=== PATIENT | female | born 1975 | race Caucasian/White ===

== ENCOUNTER 2022-10-02 13:16 | Outpatient (OUT) | payer BC, SELFPAY ==
--- NOTE | 2022-10-02 | MM_ITS ---
Patient: ALYSSA ALVA Exam Date: 10/02/2022 : 1975 Gender:F Ordering : DR Luis Majano . Admission #: [id number] Family : Order #: [id number] CLICK HERE TO VIEW EXAM RADIOLOGY REPORT PROCEDURE: MM TOMOSYNTHESIS SCREENING BI COMPARISON: MG MAMM SCREEN 3D AMINA CAD, 08/14/2020. MG MAMM SCREEN AMINA W CAD, 06/30/2019. INDICATIONS: Screening Calculator Name NCI Breast Cancer Risk Assessment Tool 5 Year Breast Cancer Risk 1.20% Lifetime Breast Cancer Risk 9.90% Personal Breast Cancer No Personal Ovarian Cancer No Treatments None Family Cancers None LOCATION: [facility] BREAST COMPOSITION: Scattered areas fibroglandular density. FINDINGS: DIAGNOSTIC CATEGORY 2--BENIGN FINDING. NO CHANGE FROM COMPARISON. Scattered benign-appearing nodules are present. Scattered benign-appearing calcifications are present. Scattered benign-appearing lymph nodes are present. RIGHT BREAST: No significant suspicious finding. Stable micro clip marker upper outer quadrant, posterior breast. LEFT BREAST: No significant suspicious finding. RECOMMENDATIONS: ROUTINE MAMMOGRAM AND CLINICAL EVALUATION IN 12 MONTHS. PLEASE NOTE: A NORMAL MAMMOGRAM DOES NOT EXCLUDE THE POSSIBILITY OF BREAST CANCER. A CLINICALLY SUSPICIOUS PALPABLE LUMP SHOULD BE BIOPSIED. Dictated by: Milton Camejo MD on 10/02/2022 at 15:43 Approved by: Milton Camejo MD on 10/02/2022 at 15:59
== END 2022-10-02 13:17 ==
LOC: MAMMO 13:19
PROVIDERS: PCP Family Medicine; Visit Provider Family Medicine
DX: Z12.31 Encounter for screening mammogram for malignant neoplasm of breast (principal)
CPT/HCPCS: 77063; 77067

== ENCOUNTER 2022-10-07 07:12 | Day surgery (SDC) | payer BC, SELFPAY ==
[2022-10-07 07:33] LABS: HCG Qualitative NEGATIVE (NEGATIVE)
[2022-10-07 07:40] VITALS: BP 145/73; PULSE 76; RESP 16; TEMP 36.2; O2SAT 97; BMI 48.2
[2022-10-07] MEDS: LACTATED RINGER'S SOLUTION 1,000 ML 50 ML IV (08:20)
[2022-10-07 08:46] VITALS: BP 132/75; PULSE 72; RESP 14; O2SAT 97
[2022-10-07 09:05] VITALS: BP 124/73; PULSE 63; RESP 16; O2SAT 97
--- NOTE | 2022-10-07 09:08 | PC.NURSE ---
Up to bathroom; gait steady; no complaints
--- NOTE | 2022-10-07 09:37 | PM.GSPRC ---
Date of procedure: 10/07/22 Indications for Procedure: This patient is a 47-year-old [place] who presents for screening colonoscopy. the risks benefits options and potential complications of the procedure were discussed in detail with the patient and they agreed to proceed and consent was signed. Pre-op diagnosis: colon cancer screening Post-op diagnosis: other (diverticulosis) Procedure: colonoscopy Anesthesia: MAC Surgeon: Ronn Rodriguez Procedure Summary: The patient was brought to the endoscopy suite and placed in the left lateral decubitus position.? Under MAC the fiberoptic colonoscope was introduced into the rectum. This was gradually advanced through the colon to the cecum. The cecal landmarks were identified. The bowel prep was good. Gradual withdrawal of the colonoscope was then undertaken. No vascular polypoid or mucosal lesions were noted throughout the entire length of the colon. In the descending colon there were scattered diverticuli. The anal rectal canal was unremarkable. The colon was decompressed. Digital rectal exam was unremarkable. The procedure was ended and the patient was transferred to the recovery area in stable condition. Recommended follow-up colonoscopy in ten years. Estimated blood loss (mL): 0 Specimens: none Complications: No
== END 2022-10-07 09:25 | disposition home or self-care (01) ==
PROVIDERS: PCP Family Medicine; Visit Provider Surgery
PROC: (CPT 45378; principal; 2022-10-07 08:30)
DX: Z12.11 Encounter for screening for malignant neoplasm of colon (principal); K57.30 Diverticulosis of large intestine without perforation or abscess without bleeding
CPT/HCPCS: 45378; 84703; J2704

== ENCOUNTER 2023-03-25 07:52 | Outpatient (OUT) | payer BC, SELFPAY ==
--- NOTE | 2023-03-25 07:56 | US_ITS ---
The [address] [address] Patient Name: ALYSSA ALVA MRN: [id number] date: 1975 Sex: F Assigned Patient Location: US Current Patient Location: US Accession/Order Number: [id number] Exam Date: 03/25/2023 08:10 Report Date: 03/25/2023 09:11 At the request of: JANE SAUER Procedure: US renal BI EXAM: US renal BI HISTORY: Recurrent UTI N39.0, Family History Kidney Stone Z84.1 COMPARISON: Renal ultrasound 04/28/2022. TECHNIQUE: Real-time ultrasound imaging of the kidneys and bladder. Findings: The kidneys measure 10.2 and 11.5 cm. There is good corticomedullary differentiation bilaterally. No renal stones. Mild left-sided pelviectasis. No focal mass or perinephric fluid collection. The bladder is fluid-filled with a prevoid volume of 246 mL. Unremarkable bladder. US/US renal BI IMPRESSION: 1. Mild left pelviectasis. Findings may relate to obstruction or reflux. Electronically authenticated by: JACY ANSARI Date: 03/25/2023 09:11
--- NOTE | 2023-03-25 08:08 | XR_ITS ---
The [address] [address] Patient Name: ALYSSA ALVA MRN: [id number] date: 1975 Sex: F Assigned Patient Location: US Current Patient Location: US Accession/Order Number: [id number] Exam Date: 03/25/2023 08:04 Report Date: 03/25/2023 14:15 At the request of: JANE SAUER Procedure: XR abdomen 1V EXAM: XR abdomen 1V HISTORY: Recurrent UTI N39.0, Family History Kidney Stone Z84.1 COMPARISON: None. TECHNIQUE: AP view of the abdomen. FINDINGS: Nonobstructive bowel gas pattern is noted. There is no suspicious calcification. The osseous structures are intact. XR/XR abdomen 1V IMPRESSION: Nonobstructive bowel gas pattern. Constipation. Electronically authenticated by: SHYAM OLIVERA Date: 03/25/2023 14:15
== END 2023-03-25 07:53 | disposition home or self-care (01) ==
LOC: US 07:52
PROVIDERS: PCP Family Medicine; Visit Provider Physician Assistant
DX: N39.0 Urinary tract infection, site not specified (principal); Z84.1 Family history of disorders of kidney and ureter; Z87.891 Personal history of nicotine dependence
CPT/HCPCS: 74018; 76775

== ENCOUNTER 2023-05-18 07:50 | Outpatient (OUT) | payer BC, SELFPAY ==
--- OUTSIDE RECORDS SUMMARY | 2023-05-18 07:52 | XMS_ITS | CCD ---
Author Name Unknown Address [address] [place] [address] Organization [facility] Care Team Providers Care Engineering Drawings Checker Name Role Phone HE OLIVAS Primary Care Physician DEISY, DR HE Hines Primary Care Unavailable NADERER, DR HE Hines Admitting Unavailable NADERER, DR HE Hines Attending Unavailable NADERER, DR HE Hines Consulting Unavailable CASTELLON, JEREL Attending Unavailable CASTELLON, JEREL Consulting Unavailable CASTELLON, JEREL Admitting Unavailable NADERER, DR HE Hines Primary Care Unavailable NADERER, DR HE Hines Admitting Unavailable NADERER, DR HE Hines Attending Unavailable NADERER, DR HE Hines Consulting Unavailable NADERER, DR HE Hines Primary Care Unavailable NEFCY, OLAMIDE Consulting Unavailable NADERER, DR HE Hines Primary Care Unavailable MISC, DR MICHELLE Admitting Unavailable LUNA, DR ANDREI Benoit Consulting Unavailable MISC, DR MICHELLE Attending Unavailable MISC, DR MICHELLE Consulting Unavailable NADERER, DR HE Hines Admitting Unavailable NADERER, DR HE Hines Attending Unavailable NADERER, DR HE Hines Consulting Unavailable NADERER, DR HE Hines Primary Care Unavailable SHAIKH HINKLE Attending Unavailable CAMACHOLUNA ADKINS Attending Unavailable LUNA SAUER Attending Unavailable NADERER, HE Referring Unavailable LUNA SAUER Attending Unavailable Allergies Allergy Classification Reported Allergen(s) Allergy Type Date of Onset Reaction(s) Facility (1 source) No Known Medication Allergies; Translations: [No Known Medication Allergies] Propensity to adverse reactions (disorder) [facility] Repository Medications Current Medications Medication Drug Class(es) Dates Sig (Normalized) Sig (Original) Excedrin Express Gels (2 sources) Start: 04-08-2022 Excedrin Express Gels Oral, q6hr, Refill(s) 0 Start Date: 04/08/22 Status: Ordered Ibuprofen (2 sources) Nonsteroidal Anti-inflammatory Drug Start: 04-08-2022 ibuprofen Refills(s) 0 Start Date: 04/08/22 Status: Ordered rizatriptan 10 mg oral tablet (2 sources) Serotonin-1b and Serotonin-1d Receptor Agonist Start: 04-08-2022 Maxalt 10 mg Tab 10 mg = 1 tab(s), Oral, As Directed, PRN Migraine headache, # 6 tab(s), Refills(s) 0 Start Date: 04/08/22 Status: Ordered sulfamethoxazole 400 mg / trimethoprim 80 mg oral tablet (1 source) Dihydrofolate Reductase Inhibitor Antibacterial, Sulfonamide Antimicrobial Start: 05-01-2022 Bactrim 400 mg-80 mg Tab See Instructions, 20 tab(s), Refill(s) 3, 1 tab po after intercourse for UTI prevention, [facility], 162, cm, 04/08/22 9:59:00 EST, Height/Length Dosing, 130, kg, 04/08/22 9:59:00 EST, Weight Dosing Start Date: 05/01/22 Status: Ordered Turmeric extract (2 sources) Start: 04-08-2022 take 1 mg by mouth once daily Turmeric mg, Oral, Daily, Refill(s) 0 Start Date: 04/08/22 Status: Ordered Problems Active Problems Problem Classification Problem Date Documented Da te Episodic/Chronic Other diseases of bladder and urethra (1 source) Other specified disorders of bladder; Translations: [OTHER SPECIFIED DISORDERS BLADDER] Onset: 05-01-2022 Chronic Other upper respiratory infections (6 sources) Chronic sinusitis; Translations: [Chronic sinusitis, unspecified] Onset: 09-30-2021 04-08-2022 Chronic Residual codes; unclassified (1 source) Family history of kidney disease; Translations: [Family history of disorders of kidney and ureter] Onset: 04-08-2022 Episodic Residual codes; unclassified (2 sources) Family history of renal stone 04-08-2022 Episodic Screening and history of mental health and substance abuse codes (4 sources) H/O: Disorder; Translations: [Personal history of nicotine dependence] Onset: 04-08-2022 Episodic Urinary tract infections (7 sources) Urinary tract infectious disease; Translations: [Urinary tract infection, site not specified] Onset: 04-08-2022 Episodic Past or Other Problems Problem Classification Problem Date Documented Da te Episodic/Chronic Fever of unknown origin (4 sources) Fever, unspecified; Translations: [FEVER UNSPECIFIED] Onset: 04-02-2022 Episodic Residual codes; unclassified (1 source) Family history of disorders of kidney and ureter; Translations: [FAM HX DISORDERS KIDNEY AND URETER] Onset: 05-01-2022 Episodic Residual codes; unclassified (1 source) Pain, unspecified; Translations: [PAIN UNSPECIFIED] Onset: 04-05-2022 Episodic Residual codes; unclassified (4 sources) Flushing; Translations: [FLUSHING] Onset: 02-18-2022 Episodic Results Test Name Value Interpretation Reference Range Facil ity RAD - MISCon 04-06-2023 RAD - MISC [id number] #1.00TIFF Normal [facility] RAD - Ultrasound Reporton RAD - Ultrasound Report [id number] #1.00TIFF Normal [facility] Reminderson 04-01-2023 Reminders - From: Jo Tolentino To: EU - Recalls Camacho; Sent: 04/08/2022 15:54:18 EST Show up: 02/27/2023 15:54:00 EST Subject: Schedule FLETCHER Due Date/Time: 03/20/2023 15:54:00 EST Reminder/Recall Please call and schedule FLETCHER prior to 03/24/23 Patient called office, someone sched her testing for 03/21/23 but she had to work. Patient will call the hospital to r/s testing herself. Appt r/s to 04/29/23 in speer office.[facility] completed 03/25 Normal [facility] CBC AUTO DIFFon 09-17-2022 BASO # 0.1 103/ul Normal 0.0-0.1 [facility] Comment on above: Performed By: #### C BC #### [facility] [address] [place] [address] Dr. Nkechi Rodríguez Basophils/100 WBC (Bld) 0.6 % Normal 0.2-2.0 [facility] Comment on above: Performed By: #### C BC #### [facility] [address] [place] [address] Dr. Nkechi Rodríguez EO # 0.3 103/ul Normal 0.0-0.7 [facility] Comment on above: Performed By: #### C BC #### [facility] [address] [place] [address] Dr. Nkechi Rodríguez Eosinophils/100 WBC (Bld) 2.9 % Normal 0.9-7.0 [facility] Comment on above: Performed By: #### C BC #### [facility] [address] [place] [address] Dr. Nkechi Rodríguez Erythrocyte distribution width (RBC) [Ratio] 12.8 % Normal 11.0-15.0 [facility] Comment on above: Performed By: #### C BC #### [facility] [address] [place] [address] Dr. Nkechi Rodríguez Hematocrit (Bld) [Volume fraction] 41.3 % Normal 36.0-48.0 [facility] Comment on above: Performed By: #### C BC #### [facility] [address] [place] [address] Dr. Nkechi Rodríguez Hemoglobin (Bld) [Mass/Vol] 13.6 g/dL Normal 12.0-16.0 [facility] Comment on above: Performed By: #### C BC #### [facility] [address] [place] [address] Dr. Nkechi Rodríguez IG # 0.04 10e3/ul Critically high 0.00-0.03 [facility] Comment on above: Performed By: #### C BC #### [facility] [address] [place] [address] Dr. Nkechi Rodríguez IG % 0.5 % Normal 0.0-0.5 [facility] Comment on above: Performed By: #### C BC #### [facility] [address] [place] [address] Dr. Nkechi Rodríguez LYMPH # 2.6 103/ul Normal 1.2-3.8 [facility] Comment on above: Performed By: #### C BC #### [facility] [address] [place] [address] Dr. Nkechi Rodríguez Lymphocytes/100 WBC (Bld) 29.4 % Normal 20.5-60.0 [facility] Comment on above: Performed By: #### C BC #### [facility] [address] [place] [address] Dr. Nkechi Rodríguez MANUAL DIFF REQ NO Normal [facility] Comment on above: Performed By: #### C BC #### [facility] [address] [place] [address] Dr. Nkechi Rodríguez MCH (RBC) [Entitic mass] 27.8 pg Normal 26.7-34.0 [facility] Comment on above: Performed By: #### C BC #### [facility] [address] [place] [address] Dr. Nkechi Rodríguez MCHC (RBC) [Mass/Vol] 32.9 g/dL Normal 29.9-35.2 [facility] Comment on above: Performed By: #### C BC #### [facility] [address] [place] [address] Dr. Nkechi Rodríguez MCV (RBC) [Entitic vol] 84.5 fL Normal 81.0-99.0 [facility] Comment on above: Performed By: #### C BC #### [facility] [address] [place] [address] Dr. Nkechi Rodríguez MONO # 0.4 103/ul Normal 0.3-0.8 [facility] Comment on above: Performed By: #### C BC #### [facility] [address] [place] [address] Dr. Nkechi Rodríguez Monocytes/100 WBC (Bld) 4.7 % Normal 1.7-12.0 [facility] Comment on above: Performed By: #### C BC #### [facility] [address] [place] [address] Dr. Nkechi Rodríguez NEUT # 5.5 103/ul Normal 1.4-6.5 [facility] Comment on above: Performed By: #### C BC #### [facility] [address] [address] [address] Nkechi Rodríguez Neutrophils/100 WBC (Bld) 61.9 % Normal 43.0-75.0 [facility] Comment on above: Performed By: #### C BC #### [facility] [address] [address] [address] Nkechi Rodríguez Platelet mean volume (Bld) [Entitic vol] 9.2 fL Critically low 9.5-13.5 [facility] Comment on above: Performed By: #### C BC #### [facility] [address] [address] [address] Nkechi Rodríguez PLT 324 103/ul Normal 150-450 [facility] Comment on above: Performed By: #### C BC #### [facility] [address] [address] [address] Nkechi Rodríguez RBC 4.89 106/ul Normal 4.20-5.40 [facility] Comment on above: Performed By: #### C BC #### [facility] [address] [address] [address] Nkechi Rodríguez WBC 8.9 103/ul Normal 4.0-11.0 [facility] Comment on above: Performed By: #### C BC #### [facility] [address] [address] [address] Nkechi Rodríguez GLYCOHEMOGLOBIN A1Con 2022 ADA RECOMMENDATION SEE BELOW Normal [facility] Comment on above: Result Comment: ADA RECOMMENDED LIMIT 4.0 - 6.0 ADA THERAPEUTIC TARGET < 7.0 ACTION SUGGESTED > 7.0 Performed By: #### A 1C ####[facility] [id number] [place] [address]Dr. Nkechi Rodríguez Glucose [Mass/Vol] 94 mg/dL Normal [facility] Comment on above: Performed By: #### A 1C ####[facility] [id number] [place] [id number]. Nkechi Rodríguez HbA1c (Bld) [Mass fraction] 4.9 % Normal 4.5-6.2 [facility] Comment on above: Performed By: #### A 1C ####[facility] [id number] [place], [place] [address]BpDr. Nkechi Rodríguez LIPID PROFILEon 09-17-2022 CHOL-HDL RATIO NORM SEE BELOW Normal [facility] Comment on above: Result Comment: 3.3 - 4.4 LOW RISK 4.4 - 7.1 AVERAGE RISK 7.1 - 11.0 MODERATE RISK >11.0 HIGH RISK Performed By: #### L IPID, LIVER, BMP, TSH #### [facility] [address] [address] [address] Nkechi Rodríguez Cholesterol [Mass/Vol] 192 mg/dL Normal <=200 [facility] Comment on above: Performed By: #### L IPID, LIVER, BMP, TSH #### [facility] [address] [address] [address] Nkechi Rodríguez Cholesterol in HDL [Mass/Vol] 66 mg/dL Critically high 40-60 [facility] Comment on above: Performed By: #### L IPID, LIVER, BMP, TSH #### [facility] [address] [address] [address] Nkechi Rodríguez Cholesterol in LDL [Mass/Vol] 94.2 mg/dL Normal [facility] Comment on above: Performed By: #### L IPID, LIVER, BMP, TSH #### [facility] [address] [address] [address] Nkechi Rodríguez Cholesterol.total/Cho lesterol in HDL [Mass ratio] 2.9 {ratio} Normal [facility] Comment on above: Performed By: #### L IPID, LIVER, BMP, TSH #### [facility] [address] [address] [address] Nkechi Rodríguez HDL NORMAL > or = 60 mg/dl - LOW CARDIOVASCULAR RISK <40 mg/dl - HIGH CARDIOVASCULAR RISK Normal [facility] Comment on above: Performed By: #### L IPID, LIVER, BMP, TSH #### [facility] [address] [address] [address] Nkechi Rodríguez LDL CALC NORMAL SEE BELOW Normal [facility] Comment on above: Result Comment: <100 mg/dl OPTIMAL 100 - 129 mg/dl NEAR OR ABOVE OPTIMAL 130 - 159 mg/dl BORDERLINE HIGH 160 - 189 mg/dl HIGH >190 mg/dl VERY HIGH Performed By: #### L IPID, LIVER, BMP, TSH #### [facility] [address] [address] [address] Nkechi Rodríguez Triglyceride [Mass/Vol] 159 mg/dL Critically high <=150 [facility] Comment on above: Performed By: #### L IPID, LIVER, BMP, TSH #### [facility] [address] [address] [address] Nkechi Rodríguez VLDL CALC 31.8 mg/dL Normal [facility] Comment on above: Performed By: #### L IPID, LIVER, BMP, TSH #### [facility] [address] [address] [address] Nkechi Rodríguez LIVER PROFILEon 09-17-2022 Albumin [Mass/Vol] 3.4 g/dL Normal 3.4-5.0 [facility] Comment on above: Performed By: #### L IPID, LIVER, BMP, TSH #### [facility] [address] [address] [address] Nkechi Rodríguez Albumin/Globulin [Mass ratio] 0.9 {ratio} Normal [facility] Comment on above: Performed By: #### L IPID, LIVER, BMP, TSH #### [facility] [address] [address] [address] Nkechi Rodríguez ALP [Catalytic activity/Vol] 88 U/L Normal 46-116 [facility] Comment on above: Performed By: #### L IPID, LIVER, BMP, TSH #### [facility] [address] [address] [address] Nkechi Rodríguez ALT [Catalytic activity/Vol] 21 U/L Normal 14-59 [facility] Comment on above: Performed By: #### L IPID, LIVER, BMP, TSH #### [facility] [address] [address] [address] Nkechi Rodríguez AST [Catalytic activity/Vol] 22 U/L Normal 15-37 [facility] Comment on above: Performed By: #### L IPID, LIVER, BMP, TSH #### [facility] [address] [address] [address] Nkechi Rodríguez BILI, CONJUGATED 0.0 mg/dL Normal 0.0-0.2 [facility] Comment on above: Performed By: #### L IPID, LIVER, BMP, TSH #### [facility] [address] [address] [address] Nkechi Rodríguez Bilirubin [Mass/Vol] 0.4 mg/dL Normal 0.2-1.0 [facility] Comment on above: Performed By: #### L IPID, LIVER, BMP, TSH #### [facility] [address] [place] [address] Dr. Nkechi Rodríguez Globulin (S) [Mass/Vol] 3.9 g/dL Normal [facility] Comment on above: Performed By: #### L IPID, LIVER, BMP, TSH #### [facility] [address] [place] [address] Dr. Nkechi Rodríguez Protein [Mass/Vol] 7.3 g/dL Normal 6.4-8.2 [facility] Comment on above: Performed By: #### L IPID, LIVER, BMP, TSH #### [facility] [address] [place] [address] Dr. Nkechi Rodríguez PROF CHEM 8 (BAS METB)on Anion gap [Moles/Vol] 15.4 mmol/L Normal [facility] Comment on above: Performed By: #### L IPID, LIVER, BMP, TSH #### [facility] [address] [place] [address] Dr. Nkechi Rodríguez Calcium [Mass/Vol] 8.8 mg/dL Normal 8.5-10.1 [facility] Comment on above: Performed By: #### L IPID, LIVER, BMP, TSH #### [facility] [address] [place] [address] Dr. Nkechi Rodríguez Chloride [Moles/Vol] 103 mmol/L Normal 98-107 [facility] Comment on above: Performed By: #### L IPID, LIVER, BMP, TSH #### [facility] [address] [address] [address] Nkechi Rodríguez CO2 [Moles/Vol] 23.5 mmol/L Normal 21.0-32.0 [facility] Comment on above: Performed By: #### L IPID, LIVER, BMP, TSH #### [facility] [address] [address] [address] Nekchi Rodríguez Creatinine [Mass/Vol] 0.75 mg/dL Normal 0.55-1.02 [facility] Comment on above: Performed By: #### L IPID, LIVER, BMP, TSH #### [facility] [address] [place] [address] Dr. Nkechi Rodríguez EGFR-AF NIUEAN >60 Normal >=60 [facility] Comment on above: Performed By: #### L IPID, LIVER, BMP, TSH #### [facility] [address] [place] [address] Dr. Nkechi Rodríguez EGFR-NON AF NIUEAN >60 Normal >=60 [facility] Comment on above: Performed By: #### L IPID, LIVER, BMP, TSH #### [facility] [address] [place] [address] Dr. Nkechi Rodríguez Glucose [Mass/Vol] 117 mg/dL Critically high 74-[address] [facility] Comment on above: Performed By: #### L IPID, LIVER, BMP, TSH #### [facility] [address] [place] [address] Dr. Nkechi Rodríguez Potassium [Moles/Vol] 3.9 mmol/L Normal 3.5-5.1 [facility] Comment on above: Performed By: #### L IPID, LIVER, BMP, TSH #### [facility] [address] [place] [address] Dr. Nkechi Rodríguez Sodium [Moles/Vol] 138 mmol/L Normal 136-145 [facility] Comment on above: Performed By: #### L IPID, LIVER, BMP, TSH #### [facility] [address] [place] [address] Dr. Nkechi Rodríguez Urea nitrogen [Mass/Vol] 14.0 mg/dL Normal 7.0-18.0 [facility] Comment on above: Performed By: #### L IPID, LIVER, BMP, TSH #### [facility] [address] [address] [address] Nkechi Rodríguez Urea nitrogen/Creatinine [Mass ratio] 18.7 mg/mg Normal [facility] Comment on above: Performed By: #### L IPID, LIVER, BMP, TSH #### [facility] [address] [address] [address] Nkechi Rodríguez TSHon 09-17-2022 TSH 0.991 uIU/mL Normal 0.358-3.740 [facility] Comment on above: Performed By: #### L IPID, LIVER, BMP, TSH #### [facility] [address] [address] [address] Nkechi Rodríguez Physician Referralon 023 Physician Referral [id number] #1.00CD:127 Normal [facility] RAD - MISCon 05-01-2022 RAD - MISC [id number] #1.00CD:127 Normal [facility] RAD - Ultrasound Reporton RAD - Ultrasound Report [id number] #1.00CD:127 Normal [facility] US KIDNEYSon 04-28-2022 US KIDNEYS EXAMINATION: US KIDNEYS HISTORY: Urinary tract infectious disease COMPARISON: No relevant comparison available. TECHNIQUE: Ultrasound examination was performed of the bladder. FINDINGS: Right Kidney: Normal in size, contour and cortical echotexture. No solid mass, hydronephrosis or obstructing nephrolithiasis. The cortex measures 1.4 cm thick. Height: 6.2 cm Length: 10.5 cm Width: 5.0 cm Left Kidney: Normal in size, contour and cortical echotexture. No solid mass, hydronephrosis or obstructing nephrolithiasis. The cortex measures 1.4 cm thick Height: 5.0 cm Length: 11.3 cm Width: 4.4 cm Urinary bladder measures 13.8 x 6.9 x 2.1 cm with volume of 673 mL IMPRESSION: Distention of the urinary bladder with a volume of 673 mL Electronically authenticated by: ANDREI ADAMS Date: 2022-04-28 11:37 Normal [facility] XR KUB 1 VIEWon 04-28-2022 XR KUB 1 VIEW EXAMINATION: XR KUB 1 VIEW HISTORY: Family history of urological disorder COMPARISON: No relevant comparison available. FINDINGS: BOWEL GAS PATTERN: No abnormal dilation or deviation. CALCIFICATIONS: None significant. OTHER: Negative. No abnormal gaseous collections. IMPRESSION: Nonobstructive bowel gas pattern Electronically authenticated by: ANDREI ADAMS Date: 2022-04-28 12:09 Normal [facility] Formson 04-10-2022 Forms [id number] #1.00CD:127 Normal [facility] Ambulatory Visit Summaryon 1 06-09-2021 Ambulatory Visit Summary ALYSSA ALVA :1975 Visit Date:04/08/2022 Ambulatory Visit Instructions Your Diagnosis Recurrent UTI Family history of kidney stones Former smoker Tests Performed Urnls Dip Stick Auto w/o Microscopy POC 39329 US Renal -- Results Pending -- XR Abdomen 1 View -- Results Pending -- Please visit your patient portal for your results or contact your primary care physician. Your Care Team Attending Physician - LUNA SAUER PA-C Primary Care Physician - HE OLIVAS MD Referring Physician - HE OLIVAS MD This Is Your Medications List Contact prescribing physician if questions or concerns APAP/ASA/caffeine (Excedrin Express Gels) Turmeric ibuprofen rizatriptan (Maxalt 10 mg Tab) Procedures Performed section. Discharge Vitals Height 162 cm Height 64 in Weight 130 kg Weight 286 lb BMI 49.54 What to do next Scheduled Follow-Up Appointments Thursday 3:00 PM EST With: LUNA SAUER PA-C Where: [facility] Normal [facility] Patient Educationon 04-08-20 Patient Education Obstetrics and Gynecology Urinary Tract Infection, Adult A urinary tract infection (UTI) is an infection of any part of the urinary tract. The urinary tract includes: ? The kidneys. ? The ureters. ? The bladder. ? The urethra. These organs make, store, and get rid of pee (urine) in the body. What are the causes? This is caused by germs (bacteria) in your genital area. These germs grow and cause swelling (inflammation) of your urinary tract. What increases the risk? You are more likely to develop this condition if: ? You have a small, thin tube (catheter) to drain pee. ? You cannot control when you pee or poop (incontinence). ? You are female, and: ? You use these methods to prevent : ? A medicine that kills sperm (spermicide). ? A device that blocks sperm (diaphragm). ? You have low levels of a female hormone (estrogen). ? You are . ? You have genes that add to your risk. ? You are sexually active. ? You take antibiotic medicines. ? You have trouble peeing because of: ? A prostate that is bigger than normal, if you are male. ? A blockage in the part of your body that drains pee from the bladder (urethra). ? A kidney stone. ? A nerve condition that affects your bladder (neurogenic bladder). ? Not getting enough to drink. ? Not peeing often enough. ? You have other conditions, such as: ? Diabetes. ? A weak disease-fighting system (immune system). ? Sickle cell disease. ? Gout. ? Injury of the spine. What are the signs or symptoms? Symptoms of this condition include: ? Needing to pee right away (urgently). ? Peeing often. ? Peeing small amounts often. ? Pain or burning when peeing. ? Blood in the pee. ? Pee that smells bad or not like normal. ? Trouble peeing. ? Pee that is cloudy. ? Fluid coming from the vagina, if you are female. ? Pain in the belly or lower back. Other symptoms include: ? Throwing up (vomiting). ? No urge to eat. ? Feeling mixed up (confused). ? Being tired and grouchy (irritable). ? A fever. ? Watery poop (diarrhea). How is this treated? This condition may be treated with: ? Antibiotic medicine. ? Other medicines. ? Drinking enough water. Follow these instructions at home: Medicines ? Take lxfn-kde-pymqddf and prescription medicines only as told by your doctor. ? If you were prescribed an antibiotic medicine, take it as told by your doctor. Do not stop taking it even if you start to feel better. General instructions ? Make sure you: ? Pee until your bladder is empty. ? Do not hold pee for a long time. ? Empty your bladder after sex. ? Wipe from front to back after pooping if you are a female. Use each tissue one time when you wipe. ? Drink enough fluid to keep your pee pale yellow. ? Keep all follow-up visits as told by your doctor. This is important. Contact a doctor if: ? You do not get better after 1?2 days. ? Your symptoms go away and then come back. Get help right away if: ? You have very bad back pain. ? You have very bad pain in your lower belly. ? You have a fever. ? You are sick to your stomach (nauseous). ? You are throwing up. Summary ? A urinary tract infection (UTI) is an infection of any part of the urinary tract. ? This condition is caused by germs in your genital area. ? There are many risk factors for a UTI. These include having a small, thin tube to drain pee and not being able to control when you pee or poop. ? Treatment includes antibiotic medicines for germs. ? Drink enough fluid to keep your pee pale yellow. This information is not intended to replace advice given to you by your health care provider. Make sure you discuss any questions you have with your health care provider. Document Released: 09/22/2008 Document Revised: 03/24/2019 Document Reviewed: 10/14/2018 [employer] Patient Education ? 2019 [employer] Normal [facility] Urology Office/Clinic Noteon 04-08-2022 Urology Office/Clinic Note Chief Complaint New Pt * Rec UTI HPI Staff Pt is a new pt, never before seen in our office. Here today due to recurrent UTI. No record of C&S on [facility]. Did leave message with Royce Olivas's office requesting labs/imaging. 1 UTI in the past 3m. 3 UTI's in the past year. Has been treated in the past by [facility] for UTI's. Family Hx of Kidney Stones. Does have occasional sharp pains in groin area. Vag US ordered from [facility] normal a few months ago. Urgency and pressure in pelvic area are usual signs of infection. Denies current urinary symptoms. History of Present Illness staff HPI reviewed and agree. Review of Systems no fever, chills, malaise, myalgia. no rash/lesions. no chest pain, palpitations, or SOB. no abdominal pain, nausea, vomiting. no unilateral calf swelling, redness, pain Physical Exam Vitals & Measurements HT: 64 in HT: 162 cm WT: 130 kg WT: 286 lb BMI: 49.54 General: nontoxic, NAD Mouth: moist mucosa Lungs: normal respiratory effort Cardio: regular rate, good distal perfusion Abdomen: nondistended, no suprapubic distention or tenderness, no CVA tenderness Neurologic: Grossly normal Skin: No rashes or suspicious lesions Assessment/Plan 1. Recurrent UTI (N39.0: Urinary tract infection, site not specified) Pelvis and Transvaginal US done 03/16/2022 showed small hypoechoic mass along the anterior margin of the uterus. Pt states she had an endometrial ablation in 2019. most recent UTI __about 1 mo ago UA in office today not suspicious for UTI current UTI symptoms no UTI frequency a few per year UTIs started worsening past few years Prior to that averaged UTIs every few years pt's typical UTI sx include __burning, pelvic pain/pressure hx stones no immunosuppressed no post-menopausal/hyst erectomy - has uterus, had ablation, [facility] recently did bloodwork to see if she's perimenopausal but pt didn't get results yet proper hygiene habits: wipes front to back every time yes avoids baths/hot tubs yes avoids scented [facility] [employer] products yes urinates after sexual activity yes Pt has noticed increase sexual activity typically results in a UTI. Today we discussed the following methods to decrease frequency of UTIs: 1) Increase fluids. Aim for at least 2L daily. General bladder health reviewed and pt education provided. 2) Ensure bladder emptying fully. PVR today __90 mL___ . Discussed double void maneuvers (encouraged to lean forward, apply gentle pressure on the bladder, and standing then sitting again). 3) We discussed that there is evidence that herbal supplements may help - cranberry, probiotics, and d-mannose. Pt doesn't want to start these right now. We will check [facility]UB [employer] FLETCH[facility] to rule out stones as contributing factor to UTIs. Will call pt with results. If shows significant stone burden, pt will need appt to discuss tx options. Will start post-coital Bactrim to help prevent UTIs. risks/benefits/side effects discussed. Pt advised to contact our office w all future UTI sx so we can monitor urine cx results, treat appropriately (may require extended course abx), and monitor frequency of infections. Pt advised if develops fever, severe flank pain, vomiting - needs to go to ER. If continues to get breakthrough UTIs, we will consider cystoscopy w possible UD. 2. Family history of kidney stones (Z84.1: Family history of disorders of kidney and ureter) Father. Pt does get occasional flank pain. Will schedule renal US and XR. 3. Former smoker (Z87.891: Personal history of nicotine dependence) Pt quit smoking cigarettes in May 2019. UA neg for blood. denies gross hematuria. Follow-up With When Contact Information CAMACHO MEYER, LUNA Liang, URL In 1 year 04/08/2023 EST [address] [facility] [place] [address] [phone] Additional Instructions: schedule renal US and XR Patient Education Urinary Tract Infection, Adult, [id number] Rachel Woods, personally scribed for Luna Sauer on 04/08/2022 10:52:17. . Documentation recorded by the darrel Escoto_ accurately reflects the services(s) I performed and decisions made by me. Authenticated by Luna Sauer PA-C on 04/08/2022 12:02:26. Problem List/Past Medical History Ongoing Chronic sinusitis Family history of kidney stones Former smoker Recurrent UTI Historical No qualifying data Procedure/Surgical History section. Medications Excedrin Express Gels, Oral, q6hr ibuprofen Maxalt 10 mg Tab, 10 mg= 1 tab(s), Oral, As Directed, PRN Turmeric, Oral, Daily Allergies No Known Medication Allergies Social History Tobacco Former smoker, quit more than 30 days ago Tobacco Use:. Cigarettes, Stopped age 45 Years., 04/08/2022 Family History Kidney stones: Father. Lab Results Ambulatory Point of Care Results Bilirubin Urine Dipstick: Negative (04/08/22 10:05:00) Blood Urine Dipstick: Negative (04/08/22 10:05:00) Glucose Urine Dip (more content not included)... Normal [facility] Comment on above: Result Comment: Elec tronically Signed By: LUNA SAUER PA-C\.br\Date and Time Signed: 04/08/22 12:02 EST\.br\Electronically Co-Signed By: Rachel Escoto\.br\Date and Time Co-Signed: 04/08/22 10:52 EST RESPIRATORY PANEL PLUSon Adenovirus Not detected Normal NOT DETECTED [facility] Comment on above: Performed By: #### R SPLUS #### [facility] [address] [place] [address] Dr. Nkechi Ybarra Parapertusis Not detected Normal NOT DETECTED The [facility] Comment on above: Performed By: #### R SPLUS #### [facility] [address] [place] [address] Dr. Nkechi Ybarra Pertussis Not detected Normal NOT DETECTED The [facility] Comment on above: Performed By: #### R SPLUS #### [facility] [address] [place] [address] Dr. Nkechi Rodríguez Chlamydia Pneumoniae Not detected Normal NOT DETECTED [facility] Comment on above: Performed By: #### R SPLUS #### [facility] [address] [place] [address] Dr. Nkechi Rodríguez Coronavirus 229E Not detected Normal NOT DETECTED [facility] Comment on above: Performed By: #### R SPLUS #### [facility] [address] [place] [address] Dr. Nkechi Rodríguez Coronavirus HKU1 Not detected Normal NOT DETECTED [facility] Comment on above: Performed By: #### R SPLUS #### [facility] [address] [place] [address] Dr. Nkechi Rodríguez Coronavirus NL63 Not detected Normal NOT DETECTED [facility] Comment on above: Performed By: #### R SPLUS #### [facility] [address] [address] [address] Nkechi Rodríguez Coronavirus OC43 Not detected Normal NOT DETECTED [facility] Comment on above: Performed By: #### R SPLUS #### [facility] [address] [place] [address] Dr. Nkechi Rodríguez Influenza A H1 2009 Not detected Normal NOT DETECTED [facility] Comment on above: Performed By: #### R SPLUS #### [facility] [address] [address] [address] Nkechi Rodríguez Influenza A H3 Detected Abnormal NOT DETECTED The [facility] Comment on above: Performed By: #### R SPLUS #### [facility] [address] [place] [address] Dr. Nkechi Rodríguez Influenza B Not detected Normal NOT DETECTED [facility] Comment on above: Performed By: #### R SPLUS #### [facility] [address] [place] [address] Dr. Nkechi Rodríguez Metapneumovirus Not detected Normal NOT DETECTED The [facility] Comment on above: Performed By: #### R SPLUS #### [facility] [address] [place] [address] Dr. Nkechi Rodríguez Mycoplas. Pneumoniae Not detected Normal NOT DETECTED [facility] Comment on above: Performed By: #### R SPLUS #### [facility] [address] [place] [address] Dr. Nkechi Rodríguez Parainfluenza 1 Not detected Normal NOT DETECTED [facility] Comment on above: Performed By: #### R SPLUS #### [facility] [address] [address] [address] Nkechi Rodríguez Parainfluenza 2 Not detected Normal NOT DETECTED [facility] Comment on above: Performed By: #### R SPLUS #### [facility] [address] [place] [address] Dr. Nkechi Rodríguez Parainfluenza 3 Not detected Normal NOT DETECTED [facility] Comment on above: Performed By: #### R SPLUS #### [facility] [address] [place] [address] Dr. Nkechi Rodríguez Parainfluenza 4 Not detected Normal NOT DETECTED [facility] Comment on above: Performed By: #### R SPLUS #### [facility] [address] [place] [address] Dr. Nkechi Rodríguez Rhino/Enterovirus Not detected Normal NOT DETECTED [facility] Comment on above: Performed By: #### R SPLUS #### [facility] [address] [place] [address] Dr. Nkechi Rodríguez RP2 Header 1 RESPIRATORY PANEL: VIRUSES Normal [facility] Comment on above: Performed By: #### R SPLUS #### [facility] [address] [place] [address] Dr. Nkechi Rodríguez RP2 Header 2 RESPIRATORY PANEL: BACTERIA Normal [facility] Comment on above: Performed By: #### R SPLUS #### [facility] [address] [place] [address] Dr. Nkechi Rodríguez RSV Not detected Normal NOT DETECTED [facility] Comment on above: Performed By: #### R SPLUS #### [facility] [address] [place] [address] Dr. Nkechi Rodríguez SARS-CoV-2 (COVID-19) RNA DEVAUGHN+probe Ql (Unsp spec) Not detected Normal NOT DETECTED [facility] Comment on above: Performed By: #### R SPLUS #### [facility] [address] [place] [address] Dr. Nkechi Rodríguez FSHon 02-19-2022 FSH 5.6 mIU/mL Normal [facility] Comment on above: Result Comment: Adul t Female: Follicular phase 3.5 - 12.5 Ovulation phase 4.7 - 21.5 Luteal phase 1.7 - 7.7 Postmenopausal 25.8 - 134.8 Performed By: #### [facility] #### [facility] [address] [place] [address] Rod[address]uez [address] SINUSES WO CONon 10-01-[address] SINUSES WO CON EXAMINATION: CT SINUSES WO CON HISTORY: Chronic sinusitis with sinus drainage and dizziness. COMPARISON: None. TECHNIQUE: Multi slice thin computed tomograms of the paranasal sinuses were obtained, with sagittal and coronal reconstructions. Intravenous contrast was not administered. Dose reduction techniques were achieved by using automated exposure control and/or adjustment of mA and/or kV according to patient size and/or use of iterative reconstruction technique. FINDINGS: The paranasal sinuses are well-developed and clear. The ostiomeatal complex on either side is patent. The orbital rims and floors are intact. The crooks of the sinuses are intact. There is very mild deviation of the nasal septum to the right. The nasal passages are patent. There is no apparent fracture. IMPRESSION: The paranasal sinuses are clear. No significant osseous abnormality is identified. There is a mild deviation of the septum to the right, and the nasal passages are patent. Comparison with a previous study may be helpful in confirming the chronicity of these findings. Electronically authenticated by: OLAMIDE FERRARI Date: 2021-09-30 15:25 Normal [facility] Encounters Encounter Date Encounter Type Care Provider Facility Start: 04-29-2023 ambulatory LUNA Stantoni ty:YASH Martinez Start: 03-31-2023 End: 03-31-2023 ambulatory SHAIKH ARIN Not Available Start: 03-24-2023 End: 03-25-2023 ambulatory LUNA SAUER Facility:[facility] Start: 03-24-2023 End: 03-24-2023 Patient encounter procedure LUNA SAUER [facility] Start: 09-17-[address] HE OLIVAS Facil ity:[facility] Start: 04-28-2022 End: 04-29-[address] HE OLIVAS Facility: Start: 04-08-2022 End: 04-09-2022 ambulatory LUNA SAUER Facility:[facility] Start: 04-08-2022 End: 04-08-2022 Patient encounter procedure LUNA SAUER [facility] Start: 04-02-2022 End: 04-02-[address] EH OLIVAS Facility:[facility] Start: 02-18-2022 End: 02-19-2022 ambulatory JEREL CASTELLON Facility:[facility] Start: 09-30-2021 End: 10-01-[address] HE OLIVAS Facility:[facility] Procedures Date Procedure Procedure Detail Performing Clinician section LUNA LEGER PALMER Payers Date Payer Category Payer Unknown [id number] [id number] [id number] 1975 Unknown [id number] 2.16.84 [id number] 1975 Unknown [id number] 2.16.84 [id number] 1973 Unknown [id number] 2.16.84 [id number] 1973 Unknown [id number] 2.16.84 [id number] 1973 Unknown [id number] 2.16.840 [id number] 1973 Unknown [id number] 2.16.8 [id number] 1975 Unknown [id number] 2.16.8 [id number] 1975 Unknown [id number] 2.16.8 [id number] 1961 Unknown [id number] Social History Date Type Detail Facility Start: 04-08-2022 Tobacco smoking status Ex-smoker (fi nding) [facility] Sex Assigned At Female [facility] Functional Status Date Assessment Result Facility 04-08-2022 Functional Status N/A [facility] Discharge instructions 04-08-2022 Note Date & Type Note Facility 04-08-2022 Hospital Discharg e instructions Patient Education 04/08/2022 10:07:38 Urinary Tract Infection, Adult, [id number] Urinary Tract Infection, Adult A urinary tract infection (UTI) is an infection of any part of the urinary tract. The urinary tract includes: The kidneys. The ureters. The bladder. The urethra. These organs make, store, and get rid of pee (urine) in the body. What are the causes? This is caused by germs (bacteria) in your genital area. These germs grow and cause swelling (inflammation) of your urinary tract. What increases the risk? You are more likely to develop this condition if: You have a small, thin tube (catheter) to drain pee. You cannot control when you pee or poop (incontinence). You are female, and: ?You use these methods to prevent : ?A medicine that kills sperm (spermicide). ?A device that blocks sperm (diaphragm). ?You have low levels of a female hormone (estrogen). ?You are . You have genes that add to your risk. You are sexually active. You take antibiotic medicines. You have trouble peeing because of: ?A prostate that is bigger than normal, if you are male. ?A blockage in the part of your body that drains pee from the bladder (urethra). ?A kidney stone. ?A nerve condition that affects your bladder (neurogenic bladder). ?Not getting enough to drink. ?Not peeing often enough. You have other conditions, such as: ?Diabetes. ?A weak disease-fighting system (immune system). ?Sickle cell disease. ?Gout. ?Injury of the spine. What are the signs or symptoms? Symptoms of this condition include: Needing to pee right away (urgently). Peeing often. Peeing small amounts often. Pain or burning when peeing. Blood in the pee. Pee that smells bad or not like normal. Trouble peeing. Pee that is cloudy. Fluid coming from the vagina, if you are female. Pain in the belly or lower back. Other symptoms include: Throwing up (vomiting). No urge to eat. Feeling mixed up (confused). Being tired and grouchy (irritable). A fever. Watery poop (diarrhea). How is this treated? This condition may be treated with: Antibiotic medicine. Other medicines. Drinking enough water. Follow these instructions at home: Medicines Take ljhs-tnu-rbprfiy and prescription medicines only as told by your doctor. If you were prescribed an antibiotic medicine, take it as told by your doctor. Do not stop taking it even if you start to feel better. General instructions Make sure you: ?Pee until your bladder is empty. ?Do not hold pee for a long time. ?Empty your bladder after sex. ?Wipe from front to back after pooping if you are a female. Use each tissue one time when you wipe. Drink enough fluid to keep your pee pale yellow. Keep all follow-up visits as told by your doctor. This is important. Contact a doctor if: You do not get better after 1 2 days. Your symptoms go away and then come back. Get help right away if: You have very bad back pain. You have very bad pain in your lower belly. You have a fever. You are sick to your stomach (nauseous). You are throwing up. Summary A urinary tract infection (UTI) is an infection of any part of the urinary tract. This condition is caused by germs in your genital area. There are many risk factors for a UTI. These include having a small, thin tube to drain pee and not being able to control when you pee or poop. Treatment includes antibiotic medicines for germs. Drink enough fluid to keep your pee pale yellow. This information is not intended to replace advice given to you by your health care provider. Make sure you discuss any questions you have with your health care provider. Document Released: 09/22/2008 Document Revised: 03/24/2019 Document Reviewed: 10/14/2018 [employer] Patient Education 2020 [employer]. Follow Up Care 02/20/2022 10:30:19 With:CAMACHO MEYER, LUNA Liang, URL Address: [address] [place] [phone] When:04/08/2023 Comments:schedule renal US and XR [facility] Evaluation + Plan note Note Date & Type Note Facility Evaluation + Plan note Future Appointments Appointment Date:03/24/2023 03:00:00 PM Scheduled Provider:LUNA SAUER PA-C Location:[facility] Appointment Type:URO Office Visit [facility] Evaluation + Plan note Note Date & Type Note Facility Evaluation + Plan note Future Appointments Appointment Date:04/29/2023 08:40:00 AM Scheduled Provider:LUNA SAUER PA-C Location:[facility] Appointment Type:URO Office Visit [facility] Hospital course Narrative Note Date & Type Note Facility Hospital course Narrative No data available for this section [facility] Hospital Discharge instructions Note Date & Type Note Facility Hospital Discharge instructions No data available for this section [facility] Progress note Note Date & Type Note Facility Progress note No data available for this section [facility] Summary Purpose Family History No Family History Records Found No data available for this section No Family History Records FoundNo Family History Records Found Advance Directives No Advanced Directives Records FoundNo Advanced Directives Records FoundNo Advanced Directives Records Found Additional Source Comments Patient Care team informatio n (unrecognized section and content) Personnel Name: HE OLIVAS MD Address: Address: [facility] [address] [id number] Personnel Name: HE OLIVAS MD Address: Address: [facility] [place] [address] INFORMATION SOURCE (unrecogn ized section and content) DATE CREATED AUTHOR 09/26/2022 [facility] pital DATE CREATED AUTHOR AUTHOR'S ORGANIZ ATION 04/02/2023 [facility] EPIC DATE CREATED AUTHOR AUTHOR'S ORGANIZ ATION 04/06/2023 [facility] FOR RECORDS PERTAINING TO PATIENTS WHO ARE OR HAVE BEEN ENROLLED IN A CHEMICAL DEPENDENCY/SUBSTANCEABUSE PROGRAM, SOME INFORMATION MAY BE OMITTED. This clinical summary was aggregated from multiple sources. Caution should be exercised in using it in the provision of clinical care. This summary normalizes information from multiple sources, and as a consequence, information in this document may materially change the coding, format and clinical context of patient data. In addition, data may be omitted in some cases. CLINICAL DECISIONS SHOULD BE BASED ON THE PRIMARY CLINICAL RECORDS. [facility]. provides no warranty or guarantee of the accuracy or completeness of information in this document.
--- NOTE | 2023-05-18 07:53 | US_ITS ---
The [address] [address] Patient Name: ALYSSA ALVA MRN: [id number] date: 1975 Sex: F Assigned Patient Location: US Current Patient Location: US Accession/Order Number: [id number] Exam Date: 05/18/2023 08:00 Report Date: 05/18/2023 08:56 At the request of: JANE SAUER Procedure: US renal BI Ultrasound kidneys, bilateral HISTORY: Disorder Of Kidney N28.89 COMPARISON: 03/25/2023 TECHNIQUE: Transabdominal ultrasound imaging of both kidneys was performed. FINDINGS: Kidneys suboptimally visualized due to shadowing from overlying ribs and bowel. Both kidneys demonstrate normal echotexture and echogenicity. The right kidney measures 11.2 x 5.0 x 6.3 cm. There is no hydronephrosis of right kidney. The left kidney measures 12.1 x 5.1 x 5.4 cm. No hydronephrosis of left kidney. The bladder is 281 cc. US/US renal BI IMPRESSION: 1. Normal appearance of kidneys for age without hydronephrosis. Electronically authenticated by: ALFONSO VERA Date: 05/18/2023 08:56
== END 2023-05-18 07:51 | disposition home or self-care (01) ==
LOC: US 07:50
PROVIDERS: PCP Family Medicine; Visit Provider Physician Assistant
DX: N28.89 Other specified disorders of kidney and ureter (principal)
CPT/HCPCS: 76775